=== PATIENT | female | born 1955 | race Asian ===

== ENCOUNTER 2020-04-09 12:44 | Emergency (ER) | payer MEDICAID, OTHER ==
[~2020-04-09] VITALS: Ht 157.5 cm; Wt 59.0 kg
[2020-04-09 18:00] VITALS: BP 131/82
== END 2020-04-09 18:20 | disposition home or self-care (01) ==
LOC: ER 12:44
DX: J18.9 Pneumonia, unspecified organism (principal); Z20.828 Contact with and (suspected) exposure to other viral communicable diseases
CPT/HCPCS: 36415; 71045; 87426; 93005; 99285; C9803; U0003